=== PATIENT | female | born 1970 | race Caucasian/White ===

== ENCOUNTER 2019-07-16 22:42 | Emergency (ER) | payer MEDICAID ==
[~2019-07-16] VITALS: Ht 157.5 cm; Wt 57.2 kg
[2019-07-16 22:55] VITALS: Ht 157.5 cm; Wt 57.2 kg
[2019-07-17 00:47] LABS: BASOPHIL % 0.1 % (0-2); PLATELET COUNT 194 x10^3mcL (130-400); RED CELL DISTRIBUTION WIDTH 11.9 % (11.5-14.5)
[2019-07-17 00:58] LABS: CALCIUM 8.1 mg/dL (8.5-10.1); CARBON DIOXIDE 28.1 mmol/L (21-32); CHLORIDE SERUM 100 mmol/L (98-107); CREATININE SERUM 0.6 mg/dL (0.6-1.0); GFR1 > 60 mL/min; GLUCOSE SERUM 288 mg/dL (74-106); POTASSIUM SERUM 3.5 mmol/L (3.5-5.1); SODIUM SERUM 136 mmol/L (136-145)
[2019-07-17 01:10] LABS: ALKALINE PHOSPHATASE 135 U/L (46-116); ALT/SGPT 26 U/L (14-59); AST/SGOT 14 U/L (15-37); BILIRUBIN TOTAL 0.33 mg/dL (0.20-1.00); TOTAL PROTEIN, SERUM 7.1 g/dL (6.4-8.2)
[2019-07-17 01:18] LABS: ALBUMIN 3.2 g/dL (3.4-5.0)
[2019-07-17 01:51] VITALS: BP 114/68
== END 2019-07-17 01:51 | disposition home or self-care (01) ==
LOC: ED 22:42
PROVIDERS: Emergency Medicine
DX: N39.0 Urinary tract infection, site not specified (principal); R42 Dizziness and giddiness; E11.9 Type 2 diabetes mellitus without complications
CPT/HCPCS: 82962; J2405; J7030